=== PATIENT | female | born 1955 | race Asian ===

== ENCOUNTER 2017-10-06 09:37 | Day surgery (SDC) | payer OTHER ==
[2017-10-06] MEDS ORDERED: MIDAZOLAM 1 MG/ML 2 ML INJ ×2 (12:02)
[2017-10-06] MEDS ORDERED: FENTAnyl 50 MCG/ML VIAL (12:02)
== END 2017-10-06 12:10 | disposition home or self-care (01) ==
LOC: GIL 09:37
DX: Z12.11 Encounter for screening for malignant neoplasm of colon (principal); K21.9 Gastro-esophageal reflux disease without esophagitis; K29.50 Unspecified chronic gastritis without bleeding; K64.8 Other hemorrhoids
CPT/HCPCS: 43239; 88305; 88312